=== PATIENT | female | born 1950 | race Caucasian/White ===

== ENCOUNTER 2022-09-05 08:12 | Day surgery (SDC) | payer MEDICARE, OTHER, SELFPAY ==
--- NOTE | 2022-08-27 10:12 | HP.PCM_ITS ---
History and Physical Date of Admission: 09/05/22 HPI: The patient is a 72 year old female presenting for pre-operative visit. She is scheduled for laparoscopic bilateral salpingo-oophorectomy, for right ovarian cyst and family history of ovarian cancer on 09/05/22. Procedure discussed along with risks, benefits and complications. Other alternatives discussed for management. Consent form signed? Yes. ? ? PAST MEDICAL HISTORY PAST MEDICAL HISTORY Diagnosis Date ? Allergic rhinitis, cause unspecified ? ? Allergic rhinitis ? DDD (degenerative disc disease), lumbar ? ? 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 ? GERD (gastroesophageal reflux disease) ? ? Hypertension ? ? Internal hemorrhoids without mention of complication ? ? Lumbar herniated disc ? ? Lumbar spondylosis ? ? steriod injections ? Osteopenia ? ? resolved ? PMH - PAST MEDICAL HISTORY OF ? ? PLANTER FACIITIS ? PMH - PAST MEDICAL HISTORY OF ? ? in utero SANTY exposure ? Sciatica ? ? saw Dr. Marcum in pain mgmt ? Scoliosis ? ? Skin eruption 05/12/2022 ? Spinal stenosis, lumbar region, without neurogenic claudication ? ? Unspecified essential hypertension ? ? Essential hypertension ? Wrist tendonitis ? ? left wrist ? ? PAST SURGICAL HISTORY PAST SURGICAL HISTORY Procedure Laterality Date ? BACK SURGERY HX ? 05/24/2013 ? BACK SURGERY HX ? 06/2020 ? DELIVERY ONLY ? ? ? , low cervical X2 ? COLONOSCOPY FLX DX W/COLLJ SPEC WHEN PFRMD ? 12/29/2011 ? repeat 10 years ? COLONOSCOPY FLX DX W/COLLJ SPEC WHEN PFRMD ? 02/21/2019 ? Colonoscopy ? ESOPHAGOGASTRODUODENOSCOPY TRANSORAL DIAGNOSTIC ? 09/16/2013 ? EGD ? ESOPHAGOGASTRODUODENOSCOPY TRANSORAL DIAGNOSTIC ? 02/21/2019 ? EGD ? FUSION OF FOOT BONES ? 05/24/2014 ? PAST SURGICAL HISTORY OF ? 1996 ? BREAST REDUCTION ? PAST SURGICAL HISTORY OF ? 05/24/2013 ? Micro Disc (Dr. Dawn) ? ? ? CURRENT MEDICATIONS Current Outpatient Medications Medication Sig Dispense Refill ? baclofen (LIORESAL) 10 mg tablet Take 10 mg by mouth as needed. ? ? ? meloxicam (MOBIC) 15 mg tablet Take 1 tablet by mouth once daily as needed. 90 tablet 1 ? furosemide (LASIX) 20 mg tablet Take 1 tablet by mouth once daily. 30 tablet 0 ? potassium chloride (K-TAB) 10 mEq tablet Take 1 tablet by mouth daily with breakfast. 30 tablet 0 ? zolpidem (AMBIEN) 10 mg Take 1 tablet by mouth at bedtime as needed for up to 180 days. 30 tablet 5 ? pregabalin (LYRICA) 25 mg capsule Take 1 capsule by mouth three times daily as needed for up to 180 days. - taking as needed 90 capsule 5 ? alendronate (FOSAMAX) 70 mg tablet Take 1 tablet by mouth one time a week. TAKE IN THE MORNING WITH A FULL GLASS OF WATER ON AN EMPTY STOMACH. DO NOT TAKE ANYTHING ELSE BY MOUTH OR LIE DOWN FOR THE NEXT 30 MINUTES. 12 tablet 4 ? atenolol (TENORMIN) 50 mg tablet Take 1 tablet by mouth once daily. 90 tablet 3 ? lisinopril-hydroCHLOROthiazide (PRINZIDE, ZESTORETIC) 20-25 mg per tablet Take 1 tablet by mouth every morning. 90 tablet 3 ? no122/iron/folic acid ( MULTI ORAL) Take 1 tablet by mouth once daily. ? ? ? estradiol (ESTRACE) 0.01 % (0.1 mg/gram) vaginal cream apply a small amount to the lower vagina qhs 3 times weekly. 42.5 g 1 ? esomeprazole magnesium (NEXIUM ORAL) Take 20 mg by mouth once daily. ? acetaminophen (TYLENOL ARTHRITIS ORAL) Take by mouth as needed. ? montelukast (SINGULAIR) 10 mg tablet Take 1 tablet by mouth once daily. As needed (seasonal allergies; Dr. Hansen prescribes) ? ? ? TRIAMCINOLONE ACETONIDE (NASACORT AQ NASAL) Use in the nose. ? ? ? HYDROcodone-acetaminophen (NORCO) 5-325 mg per tablet Take 1-2 tablets by mouth every 8 hours as needed for pain for up to 5 days. 10 tablet 0 ? Current Facility-Administered Medications Medication Dose Route Frequency Provider Last Rate Last Admin ? perflutren lipid microspheres 1.3 mL in NaCl (PF) 0.9% 10 mL injection (DEFINITY) INTRAVENOUS DIRECTED PRN Anahi Mckenna APRN.DRIVE IN WAITER/WAITRESS ? sodium chloride 0.9 % (flush) 10 mL (BD POSIFLUSH) 10 mL INTRAVENOUS DIRECTED PRN Anahi Mckenna, ROLL FINISHER.DRIVE IN WAITER/WAITRESS ? ? ALLERGIES: Penicillins, Clindamycin, Dilaudid [Hydromorphone Hcl], Grass Pollen, and Sulfa (Sulfonamide Antibiotics) ? PERSONAL HISTORY: SOCIAL HISTORY Social History ? Tobacco Use ? Smoking status: Never ? Smokeless tobacco: Never Vaping Use ? Vaping Use: Never used Substance Use Topics ? Alcohol use: Yes ? ? Comment: 2 GLASSES OF WINE EVERY NIGHT ? Drug use: No ? FAMILY HISTORY: FAMILY HISTORY FAMILY HISTORY Problem Relation Age of Onset ? Hypertension Mother ? ? Arthritis Mother ? ? ? rhematoid ? other (ovarian cancer) Mother ? ? at 86 ? Diabetes Father ? ? Heart Father ? ? Diabetes Sister ? ? Coronary Artery Disease Brother ? ? stents ? Rheumatologic disease Brother ? ? RA ? Diabetes Sister ? ? Coronary Artery Disease Brother ? ? stents ? Breast Cancer Paternal Aunt ? ? other (Polymylasia) Paternal Aunt ? ? ? REVIEW OF SYMPTOMS: GENERAL: denies fevers or chills ENDOCRINOLOGY: has not been on steroids Cardiology : denies palpitations or chest pain Respiratory: denies SOB or cough Hematology: denies history of prolonged bleeding or easy bruising or VTE Allergy: Denies history of personal or family history of allergy to anesthesia ? PHYSICAL EXAMINATION: ? VITALS: Blood pressure 120/76, pulse 62, resp. rate 12, height 4' 11 (1.499 m), weight 165 lb 8 oz (75.1 kg), last menstrual period 06/27/2005. ? GENERAL: The patient is well nourished, well hydrated in no acute distress. , The patient is oriented to time, place, and person. NECK: Supple. No lynphadenopathy, normal thyroid, no thyromegaly. LUNGS: Clear to auscultation bilaterally. no wheezes, rhonchi or rales HEART: Regular rate and rhythm, Normal heart sounds, and No murmurs or gallops ? IMPRESSION: Right ovarian cyst, pelvic pain, family history of ovarian cancer ? PLAN: The risks/benefits/alternatives and personal involved for the planned bilateral salpingo-oophorectomy were reviewed with the patient. Her questions were answered to her satisfaction and she desires to proceed. Consent was signed. I reviewed with her postop instructions and expectations. ? ? I have reviewed and updated past medical and surgical history, medications and allergies Assessment & Plan Assessment/Plan (1) Right ovarian cyst: (2) Family history of ovarian cancer: (3) Pelvic pain:
[2022-09-05] VITALS (7 sets, daily range): BP systolic 122–158; BP diastolic 63–85; PULSE 56–63; RESP 16–18; TEMP 36.3–36.6; O2SAT 94–100; BMI 33.3
--- NOTE | 2022-09-05 | FLU_PTH ---
PATIENT: EDI UNDERWOOD LOC: [facility] U#:[id number] AGE/SX: 72/F ROOM: RE09/05/[address]: Dr. Cathy Yip MD : 1950 BED: DIS: 09/05/2022 SPEC #: [id number] RECD: 09/05/22 11:15 STATUS: BONNY REQ #: [id number] CRISTIANO: 09/05/22 00:[address]: Cathy Yip DEPT: CYTOLOGY RECD BY: Josiah Riggs ENTERED: 09/05/22 11:15 SP TYPE: Fluid OTHR DR: Dr. Liza Castrejon MD Tissues: Peritoneal fluid Procedures: Special Stain Group II Surgery Specimen Level IV Cytospin Fluid HEADER OPERATION: Laparoscopic salpingo-oophorectomy PRE-OP DIAGNOSIS: Right ovarian cyst, pelvic pain, family history of ovarian cancer TISSUE SUBMITTED: Peritoneal fluid for cytology DIAGNOSIS CYTOLOGY Peritoneal fluid for cytology (cytospin and cell block): Negative for malignant cells. AM:david 09/08/2022 CYTOLOGY STUDY Slides are reviewed. CYTOLOGY GROSS Received is 40 ml of yellow cloudy fluid labeled with the patient's name and and designated per the requisition as peritoneal. Submitted for cytology preparation including cell block. / david 09/05/2022 TC:5 CPT: 16372, 64578
[2022-09-05] MEDS: Acetaminophen 500 MG Tablet 1000 MG PO (09:10)
[2022-09-05] MEDS: Celecoxib 200 MG Capsule PO (09:10)
[2022-09-05 09:11] LABS: Hematocrit 35.3 % (37-47); Hemoglobin 11.4 g/dL (12.0-15.0); Mean Corp Hgb Conc 32.3 g/dL (32-36); Mean Corpuscular Hgb 33.5 pg (27.0-32.0); Mean Corpuscular Volume 103.8 fL (81-99); Mean Platelet Vol. 9.2 fl (6.2-12.0); Platelet Count 270 K/mm3 (150-450); RBC Distribution Width CV 14.8 % (11.6-14.6); RBC Distribution Width SD 57.1 fl (35.1-43.9); White Blood Count 5.3 K/mm3 (4.4-11.0)
[2022-09-05] MEDS: Lactated Ringers 1,000 ML 15 ML IV (09:12)
[2022-09-05 09:30] LABS: AST(SGOT) 18 U/L (15-37); Alanine Aminotransfer ALT/SGPT 34 U/L (13-56); Albumin, Serum 3.3 g/dL (3.2-5.0); Alkaline Phosphatase 54 U/L (45-117); Bilirubin, Direct 0.09 mg/dL (0.00-0.30); Globulin 2.6 g/dL (2.2-4.2); Protein, Total 5.9 g/dL (6.4-8.2)
--- NOTE | 2022-09-05 09:40 | OV_PTH ---
PATIENT: EDI UNDERWOOD LOC: [facility] [place] U#:[id number] AGE/SX: 72/F ROOM: RE09/05/[address]: Dr. Cathy Yip MD : 1950 BED: DIS: 09/05/2022 SPEC #: [id number] RECD: 09/05/22 12:55 STATUS: BONNY REMarvel #: [id number] CRISTIANO: 09/05/22 09:[address]: Cathy Yip DEPT: SURGICAL PATHOLOGY RECD BY: Tabatha Lezama ENTERED: 09/05/22 13:17 SP TYPE: OVARY OTHR DR: Dr. Liza Castrejon MD Tissues: A - OVARIAN CYST B - Peritoneal cavity, NOS Procedures: Surgery Specimen Level IV HEADER OPERATION: Laparoscopic salpingo-oophorectomy PRE-OP DIAGNOSIS: Right ovarian cyst, pelvic pain, family history of ovarian cancer TISSUE SUBMITTED: A - Bilateral fallopian tubes and ovaries, stitch on left, B ? Peritoneal nodule MICROSCOPIC DIAGNOSIS A. Bilateral fallopian tubes and ovaries: Bilateral ovaries - no pathologic diagnosis. Bilateral fallopian tubes - hydrosalpinx. B. Peritoneal nodule, biopsy: Consistent with leiomyoma. SJ:david 09/08/2022 COMMENT Case has been reviewed in consultation with Dr. Ayala who concurs with the above diagnosis. IDC:AM MICROSCOPIC DESCRIPTION Slides are reviewed. GROSS DESCRIPTION A - Received in fixative is one container labeled with the patient's name and designated bilateral fallopian tubes and ovaries. The specimen consists of a smooth, crinkled, yellow-abarca right ovary measuring 2.8 x 1.5 x 1 cm. Serial sections do not reveal mass lesions. Adjacent to this is a fallopian tube measuring 8 cm in length and varies in diameter from 0.8 to 2.5 cm. Two Filshie-type clips are present and intact. The left ovary is similar in appearance and measures 3 x 1.5 x 1 cm. Serial sections do not reveal mass lesions. The left fallopian tube is similar in appearance to the right tube and measures 9 cm in length and varies in diameter from 0.6 to 4.5 cm. The dilated portion of both fallopian tubes contains clear fluid. Two Filshie-type clips are present and intact. Certified Nurses' Aide sections are submitted in four cassettes as follows: 1 ? right ovary and fallopian tube, 2 ? dilated portion of right fallopian tube, 3 ? left ovary and fallopian tube, 4 ? dilated portion of left fallopian tube. B - Received in fixative is one container labeled with the patient's name and designated peritoneal nodule. The specimen consists of firm, pink-yellow nodular tissue measuring 0.6 x 0.5 x 0.2 cm. The specimen is totally submitted in one cassette. / AM:david 09/05/2022 TC:1 CPT: 07798 x3
--- NOTE | 2022-09-05 09:52 | DCINST_ITS ---
Discharge Instructions Diet Discharge Diet: No restrictions Activity May resume sexual activity in: 1 week and 2 weeks Lifting Restrictions: none Dressing / Incision Call your doctor if your incision/area has: Sudden Increased Bleeding and Foul Smelling Discharge Call your doctor if you observe: Fever of 101 or Higher and Using more than 1 pad per hour (for 2 hrs in a row) Follow Up Care Please Follow Up With: Cathy Yip MD When: 2-4 weeks or as needed. Call [phone] to make an appointment or with any concerns. Test Results: Test results from this visit will be discussed in further detail at your follow- up appointment, if applicable. Discharge Plan Admission Admit Date/Time: 09/05/22 08:12 Primary Reason for Your Visit: Bilateral tube and ovary removal Attending Provider: Cathy Yip Primary Care Provider: Liza Castrejon Discharge Orders/Prescriptions Prescriptions: No Action meloxicam [Mobic] 15 mg Tablet 15 mg PO DAILY alendronate [Fosamax] 70 mg Tablet 70 mg PO SA potassium chloride 10 mEq Tablet Extended Release 10 meq PO DAILY lisinopril-hydrochlorothiazide 20-25 mg Tablet 1 tab PO DAILY furosemide 20 mg Tablet 20 mg PO DAILY zolpidem 10 mg Tablet 10 mg PO QHS 60-0.8 mg Tablet 1 tab PO QHS acetaminophen [Tylenol Extra Strength] 500 mg Capsule 1,000 mg PO BID atenolol 50 mg Tablet 50 mg PO DAILY pregabalin 25 mg Capsule 50 mg PO BID PRN (Reason: Pain) esomeprazole magnesium [Nexium] 20 mg Capsule,Delayed Release(Dr/Ec) 20 mg PO DAILY Referrals / Follow Up: Liza Castrejon MD [Primary Care Provider] - Disposition Disposition (needs filled in before D/C Order can be placed): Home, Self Care
[2022-09-05] MEDS: Bupivacaine 0.25% 30 ML Vial (10:20)
--- NOTE | 2022-09-05 10:32 | OP.PCM_ITS ---
Problems Associated Problem List Diagnoses (1) Right ovarian cyst: (2) Family history of ovarian cancer: (3) Pelvic pain: Report of Operation Date of Procedure: 09/05/22 Pre-Operative Diagnosis: bilateral ovarian cyst, pelvic pain, family h/o ovarian ca Post-Operative Diagnosis: same Surgery/Procedure Performed:: Laparoscopic BSO w/ pelvic washings and peritoneal biopsy Description of Surgical Findings:: small atrophic right ovary, normal tube, small paratubal cyst, left small but ovarian cyst w/ straw colored fluid and some firm nodularity externally and internally. bilateral filshie clips, 2 each tube, nodular are left side of the bladder peritoneum Surgeon: Cathy Yip cnc lathe machinist: Marya Davis cnc lathe machinist: Sandrine gonzalez Type of Anesthesia: General Anesthesiologist: Garret Retana Special Medications: none Specimen's removed: bilateral fallopian tubes and ovaries Drains: none Estimated Blood Loss (mL): 5 Fluids Replaced: 1000 Description of Procedure: The patient was taken to the operating room where she was prepped and draped in the dorsolithotomy position. A weighted speculum was placed in the vagina and the anterior lip of the cervix was grasped with a tenaculum. The acorn uterine manipulator was placed and the remainder of the instruments were removed from the vagina. Attention was turned to the abdomen. All port sites were infiltrated with 0.5% Marcaine before skin incisions were made. A 5 mm intraumbilical incision was made. The anterior abdominal wall was tented up with 2 towel clamps while a 5 mm blade less trocar and sleeve were directly inserted. Intraperitoneal placement was confirmed with the laparoscope. The pneumoperitoneum was created and the underlying abdominal contents were intact. The patient was placed in Trendelenburg. 5mm right and left lower quadrant ports were placed under direct visualization lateral to the inferior epigastric vessels. The bowel was swept away and the above findings were noted. Pelvic washings were obtained. The ureters were identified before we started. The right infundibulopelvic ligament was clamped, sealed and transected with the LigaSure device. The antimesenteric portions of the tube were clamped, sealed and transected. The utero-ovarian ligaments were clamped sealed and transected with the LigaSure device . The same procedure was performed on the contralateral side. The specimens were placed in an bag and removed through the umbilical incision. The umbilical incision was extended to allow removal of the ovaries in the bag intact. The pedicles were again examined and found to be hemostatic. The umbilical port fascia was closed with 4-0 Vicryl suture in a running sta ndard fashion. The lateral ports were removed under direct visualization and no active bleeding was noted. The pneumoperitoneum was released. The skin incisions were closed with Monocryl suture in a subcuticular fashion and skin glue by Dr. Gill. Dr. Gill provided camera guidance and tissue manipulation during the procedure. The vaginal instruments were removed and the vaginal sweep was completed by me. The procedure was performed by me with assistance other than as dictated above. All sponge and needle counts were correct and the patient was taken to the recovery room in stable condition. Grafts/Implants Used: none Procedure Start Time: 09:50 Procedure Stop Time: 10:37 Complications none Admit VTE Documentation VTE Present on Admission: No VTE Mechan Device Prophylaxis: SCD's VTE Pharm Prophylaxis ordered?: No Reason prophylaxis not ordered:: Procedure Not Indicated
[2022-09-05] MEDS: Sugammadex Sodium 200 MG/2 ML VIAL IV (10:38)
[2022-09-10 05:51] LABS: Cytology, Body Fluid / CSF SEE PATHOLOGY REPORT
== END 2022-09-05 12:58 | disposition home or self-care (01) | DRG 743 ==
LOC: ACINP 09:53 → SDC 09-17 10:27
PROVIDERS: Anesthesiology; PCP Internal Medicine; Referring Provider Obstetrics & Gynecology; Visit Provider Obstetrics & Gynecology
PROC: (CPT 58661; principal; 2022-09-05 09:30)
DX: N83.201 Unspecified ovarian cyst, right side (principal); N83.202 Unspecified ovarian cyst, left side; I10 Essential (primary) hypertension; Z80.41 Family history of malignant neoplasm of ovary; R10.2 Pelvic and perineal pain
CPT/HCPCS: 58661; 49321; 00840; 80076; 85027; 88108; 88302; 88305; 88313; J7120; J2405

== ENCOUNTER 2023-06-02 10:30 | Outpatient (RCR) | payer MEDICARE, OTHER, SELFPAY ==
--- NOTE | 2023-04-01 18:35 | HP.PTEVAL_ITS ---
Patient's Visit Information Visit Information Visit Information: EDI UNDERWOOD is a 72 year old F referred to Physical Therapy by LEANNA Morales with a diagnosis of lumbar spondylosis, scoliosis of lumbar spine, and L foot drop. Date of Evaluation: 04/01/23 Physical Therapist: Harrison Ge DPT Visit Plan Frequency: 2x /Week Duration: 6 Weeks Plan: Start with B ankle strengthening including PF/DF, add in neutral spine core stability. Add in static and dynamic balance including wt. shifting in order to increase ability to self correct and use ankle strategies to maintain stability. Subjective Subjective: Pt. is here today for her initial evaluation with diagnosis of lumbar spondylosis, scoliosis of lumbar spine, and L foot drop. She is having issues with her balance, resulting in 2 falls this year. She also has a history of lumbar spine pain with L radiculopathy. Pt. did have surgery and had subsequent foot drop on the L side. Pt. does have some neuropathy in B feet, but no numbness, just tingling. She is being fitted for a brace, AFO, but not until April 15. Pt. is hopeful to improve her BLE strength, increase her balance and reduce her leg and back pain. Pain Lumbar spine: Pain Intensity (Out of 10): 3 Pain Intensity Range: 1 and 6 Objective Objective: POSTURE: pt. has general flexed posture, pt. is able to correct, but has increased pain with increased upright posture. PALPATION: Pt. has tenderness at L side of lumbar spine. No distal LEs pain. NEURO: normal sensation to light and sharp touch. Normal DTR of BLEs. Pt. has increased difficulty rising on heels and toes. ROM: L ankle: normal except tight into DF 8deg. Normal hip ROM. LUMBAR SPINE: flexion nil loss NE, ext mod loss increase NW, SB min loss bilat NE, rotation min loss bilat NE. Pt. has tight B HS and hip flexors. MMT: RLE 5/5 throughout. LLE: ankle: DF 3/5, PF 4+/5; knee: ext 5-/5, flexion 5- /5. hiP; flexion 5-/5, abd 5-/5. Core strength- poor. GAIT: pt. ambulates without AD. Pt. has increased B ankle pronation during stance L worse than R. Pt. has marked L foot drop resulting in slapping during ankle DF eccentrics. STAIRS{: Pt. completed with out issues. Special Tests L/S Slump test left side: Negative L/S Slump test right side: Negative L/S Left Straight Leg Raise: Negative L/S Right Straight Leg Raise: Negative Lumbar Standing: Flexion - Mechanical Response: No effect Lumbar Standing: Flexion - Symptoms During Testing: No effect Lumbar Standing: Flexion - Symptoms After Testing: No effect Lumbar Standing: Extension - Mechanical Response: No effect Lumbar Standing: Extension - Symptoms During Testing: Increases Lumbar Standing: Extension - Symptoms After Testing: No worse Lumbar Standing: Right Side Glides - Mechanical Response: No effect Lumbar Standing: Right Side [facility] - Symptoms During Testing: No effect Lumbar Standing: Right Side [facility] - Symptoms After Testing: No better Lumbar Standing: Left Side [facility] - Mechanical Response: No effect Lumbar Standing: Left Side [facility] - Symptoms During Testing: No effect Lumbar Standing: Left Side [facility] - Symptoms After Testing: No better Lumbar Lying: Flexion - Mechanical Response: No effect Lumbar Lying: Flexion - Symptoms During Testing: Decreases Lumbar Lying: Flexion - Symptoms After Testing: Better L Hip Scour: Negative L Hip DOLORES - Intraarticular Pathology: Negative L Hip FADDIR - Labrum: Negative Balance/Special Test Scores Functional Gait Assessment Score: 21 % Disability: 30.0000 CATSIB Score (Max score 120 seconds): 76 Oswestry Low Back Score: 21 Goals Goal 1:: LTG: pt. to be I with HEP. Goal Time Frame: 4-6 Weeks Goal 2:: STG: pt. to have decreased low back and L leg pain to 0-2/10 pain with walking throughout home. Goal Time Frame: 2 Weeks Goal 3:: LTG: Pt. to be able to walk throughout grocery stores with 0-2/10 pain in L LE and back. Goal Time Frame: 4-6 Weeks Goal 4:: LTG: Pt. to have increased core strength to fair in order to reduce stress to lumbar spine with all functional activities. Goal Time Frame: 4-6 Weeks Goal 5:: LTG: Pt. to have increased L DF strength to 4/5 allowing for better foot clearance with gait. Goal Time Frame: 4-6 Weeks Goal 6:: LTG: pt to have increased FGA score to greater than 24/30 indicating reduce risk for future falls. Goal Time Frame: 4-6 Weeks Rehabilitation Potential Physical Therapy Diagnosis: Pt. has signs and symptoms consistent with lumbar spondylosis, scoliosis of lumbar spine, and L foot drop. Pt. has some strength in her L DF, but fatigues rapidly. Pt. has some imbalance in stance and with dynamic movements. She also has a history of back surgery and radiculopathy. She would benefit from PT to address the above limitations progressing her L ankle strength, core stability and dynamic balance. Rehabilitation Potential: Good Anticipated Interventions Patient/Client Instruction: Educate patient on: Condition, Plan of Care, Risk Factors and Benefits of Fitness Program For the Purpose of:: To facilitate caregiver knowledge, To improve self management, To prevent re-injury and To improve ability to perform tasks related to life management Therapeutic Exercise to Include: Strength training, Power training, Endurance training, Balance training, Flexibilty training, Gait and locomotor training, Passive ROM, Active ROM and Dynamic Lumbar Stabilization For the Purpose of:: To decrease pain, To increase ROM, To improve nutrient delivery to tissue, To increase oxygenation perfusion, To improve muscle performance and motor function, To improve ability to perform ADL's, To increase tolerance to activity/condition/position, To improve performance and independence with ADL's and To decrease level of supervision to perform tasks Text: Thank you for the opportunity to evaluate your patient. For Medicare and Medicare HMO plans, please review the plan of care and approve it. It will need to be FAXED BACK to us at [phone] for Medicare purposes. For Medicare only, by signing this I certify the plan of care. Please let me know if there are questions or concerns regarding this plan of care. Physician Signature: D ate:
--- NOTE | 2023-04-29 11:47 | HP.PTREVAL ---
Re-Evaluation Intro: Michaelle Menezes, LUL-C, It has been my pleasure to treat EDI UNDERWOOD over the last 10 visits for lumbar spondylosis, scoliosis of lumbar spine, and L foot drop. Please see the progress note below for an update on the physical therapy plan of care! Subjective Subjective: No falls since the last visit. Takes meds for her back pain and also meds for her Neuropathy. Objective Objective/Function: spent half of session w/ balance and half in the gym . Balance ex went well today. pt is doing well w/ the gym machines. No LOB w/ gt today in the clinic but LE fatigue quickly and needs to have rest breaks. Plan Plan Plan: Extending PT x2 per week for 4 weeks. Work on progressive gym exercises for LE and core strengthening. Cont. to work on balance as well. 50%/ea. during each visit. Plan is to eventually progress to I gym program and balance activities as well. Balance/Gait/Functional tests Balance/Special Test Scores Functional Gait Assessment Score: 16 % Disability: 46.6700 CATSIB Score (Max score 120 seconds): 76 Oswestry Low Back Score: 21 TUG Test Time Seconds: 10.95 Tug Test: <20 sec.=mostly independent Goals Goals Goal 1:: LTG: pt. to be I with HEP. Goal Time Frame: 4-6 Weeks Goal 2:: STG: pt. to have decreased low back and L leg pain to 0-2/10 pain with walking throughout home. Goal Time Frame: 2 Weeks Goal 3:: LTG: Pt. to be able to walk throughout grocery stores with 0-2/10 pain in L LE and back. Goal Time Frame: 4-6 Weeks Goal 4:: LTG: Pt. to have increased core strength to fair in order to reduce stress to lumbar spine with all functional activities. Goal Time Frame: 4-6 Weeks Goal 5:: LTG: Pt. to have increased L DF strength to 4/5 allowing for better foot clearance with gait. Goal Time Frame: 4-6 Weeks Goal 6:: LTG: pt to have increased FGA score to greater than 24/30 indicating reduce risk for future falls. Goal Time Frame: 4-6 Weeks Anticipated Interventions Anticipated Interventions Patient/Client Instruction: Educate patient on: Condition, Plan of Care, Risk Factors and Benefits of Fitness Program For the Purpose of:: To facilitate caregiver knowledge, To improve self management, To prevent re-injury and To improve ability to perform tasks related to life management Therapeutic Exercise to Include: Strength training, Power training, Endurance training, Balance training, Flexibilty training, Gait and locomotor training, Passive ROM, Active ROM and Dynamic Lumbar Stabilization For the Purpose of:: To decrease pain, To increase ROM, To improve nutrient delivery to tissue, To increase oxygenation perfusion, To improve muscle performance and motor function, To improve ability to perform ADL's, To increase tolerance to activity/condition/position, To improve performance and independence with ADL's and To decrease level of supervision to perform tasks Re-Evaluation Ending Re-evaluation ending: Please do not hesitate to contact me at [phone] by phone or if you have questions or concerns regarding this new plan of care! Sincerely, MARTIN LocoT
--- NOTE | 2023-06-02 15:22 | HP.PTDCSUM_ITS ---
Discharge Summary D/C summary: It has been my pleasure to treat EDI UNDERWOOD referred by LEANNA Morales, with the diagnosis of lumbar spondylosis, scoliosis of lumbar spine, and L foot drop for a total of 16 visit(s). Discharge Date: 06/02/23 Please see the following information for a summary of their discharge status. Subjective Subjective: Pt. reports going on vacation and doing well. No major issues noted. Pain Lumbar spine: Pain Intensity (Out of 10): 1 Overall Improvement % Improvement: 80 Objective Objective/Function: Pt. is overall doing well. I will DC her to HEP this date. Pt. reports being much better with her balance and strength. She is planning to start a gym program with local personal loan specialist. She does have some weakness in her L LE, but has improved a bit. At this point in time she will be DC from PT to HEP and gym program. Goals Goal 1:: LTG: pt. to be I with HEP. Goal Progress: Goal Met Goal 2:: STG: pt. to have decreased low back and L leg pain to 0-2/10 pain with walking throughout home. Goal Progress: Goal Met Goal 3:: LTG: Pt. to be able to walk throughout grocery stores with 0-2/10 pain in L LE and back. Goal Progress: Goal Met Goal 4:: LTG: Pt. to have increased core strength to fair in order to reduce stress to lumbar spine with all functional activities. Goal Progress: Goal Met Goal 5:: LTG: Pt. to have increased L DF strength to 4/5 allowing for better foot clearance with gait. Goal Progress: Goal Met Goal 6:: LTG: pt to have increased FGA score to greater than 24/30 indicating reduce risk for future falls. Goal Progress: Progressing Plan Plan: DC from PT to gym program at this point in time. D/C Information Discharge Comments: pt. was treated with focus on core strengthening and LE strengthening for her low back pain and LE weakness. Pt. has progressed well, to the point where she is ready to focus on gym exercises. Pt. will be DC from PT this date. d/c sentence: If there are questions or concerns regarding this patient's physical therapy, please feel free to call me at [phone]. Thank you for the referral of this patient. Sincerely, Harrison L Sipos, DPT Balance/Gait/Functional tests Balance/Special Test Scores Functional Gait Assessment Score: 16 % Disability: 46.6700 CATSIB Score (Max score 120 seconds): 76 Oswestry Low Back Score: 11 TUG Test Time Seconds: 10.95 Tug Test: <20 sec.=mostly independent Improvement % Improvement: 80
== END 2023-06-02 19:00 | disposition home or self-care (01) ==
LOC: PT 10:30
PROVIDERS: PCP Internal Medicine; Visit Provider Clinical Nurse Specialist
DX: M47.816 Spondylosis without myelopathy or radiculopathy, lumbar region (principal); R26.89 Other abnormalities of gait and mobility; M41.9 Scoliosis, unspecified; M21.372 Foot drop, left foot
CPT/HCPCS: 97110; 97161; 97164

== ENCOUNTER → 2024-06-29 | Outpatient (CLI) | payer MEDICARE, OTHER, SELFPAY ==
--- NOTE | 2024-06-29 09:36 | ECHOD_ITS ---
Reason For Study: HYPERTENSION Procedure This was a 2D Doppler, Color Flow transthoracic echocardiogram. Exam performed in department. Left Ventricle Normal LV size. Left ventricular systolic function is normal. The left ventricular ejection fraction is 65 %. Stage 1 diastolic dysfunction. No regional wall motion abnormalities noted. Right Ventricle Normal RV size. Normal systolic function. Atria Normal left atrium. Normal right atrium. Mitral Valve Normal mitral valve. Tricuspid Valve Normal tricuspid valve. Aortic Valve Trisinus/trileaflet aortic valve. Pulmonic Valve Normal pulmonic valve. Great Vessels Normal aortic root. The pulmonary artery is normal size. Normal inferior vena cava. Pericardium/Pleural No pericardial effusion. MMode/2D Measurements & Calculations LVIDd: 3.5 cm IVSd: 1.0 cm LVOT diam: 1.9 cm LVIDs: 2.1 cm LVPWd: 1.0 cm LVOT area: 2.8 cm2 RVDd: 3.6 cm FS: 40.4 % asc Aorta Diam: 3.7 cm LAV(MOD-bp): 30.6 ml LVAd ap4: 19.5 cm2 LAV(MOD-bp) Indexed: 20.0 ml/m2 LVLd ap4: 6.1 cm LAV(MOD-sp2): 28.3 ml EDV(MOD-sp4): 49.7 ml LAV(MOD-sp4): 31.5 ml EDV(sp4-el): 53.5 ml LVAs ap4: 10.1 cm2 LVLs ap4: 5.2 cm ESV(MOD-sp4): 16.8 ml ESV(sp4-el): 16.9 ml EF(MOD-sp4): 66.3 % EF(sp4-el): 68.3 % LVAd ap2: 16.3 cm2 SV(MOD-sp4): 33.0 ml SV(MOD-sp2): 24.7 ml LVLd ap2: 5.9 cm EDV(MOD-sp2): 36.4 ml EDV(sp2-el): 38.3 ml LVAs ap2: 8.5 cm2 LVLs ap2: 5.3 cm ESV(MOD-sp2): 11.7 ml ESV(sp2-el): 11.8 ml EF(MOD-sp2): 67.9 % SV(sp4-el): 36.6 ml Ao sinus diam: 2.[address] Junction: 2.6 cm LA dimension(2D): 3.0 cm LA A4 area: 13.3 cm2 RA A4 area: 7.5 cm2 TAPSE: 1.7 cm Time Measurements MV dec time: 0.15 sec Doppler Measurements & Calculations MV E max ismael: 76.2 cm/sec Lat Peak E' Ismael: 7.4 cm/sec Med Peak E' Ismael: 6.0 cm/sec MV A max ismael: 102.1 cm/sec E/E' lat: 10.2 E/E' med: 12.6 MV E/A: 0.75 MV dec slope: 501.7 cm/sec2 Ao V2 max: 126.0 cm/sec LV V1 max: 106.6 cm/sec Ao max P.4 mmHg LV V1 max P.5 mmHg Ao V2 mean: 86.8 cm/sec LV V1 mean P.5 mmHg Ao mean P.5 mmHg LV V1 mean: 73.9 cm/sec Ao V2 VTI: 27.0 cm LV V1 VTI: 24.3 cm AV (velocity ratio): 0.90 FANG(I,D): 2.5 cm2 FANG(V,D): 2.3 cm2 SV(LVOT): 66.7 ml PA V2 max: 87.7 cm/sec PA max PG (full): 1.1 mmHg ECHO/Echo Complete Interpretation Summary Normal LV size. Left ventricular systolic function is normal. The left ventricular ejection fraction is 65 %. Stage 1 diastolic dysfunction. Structurally normal valves. Ordering Physician: Finesse Judd Referring Physician: Liza Castrejon M.D. Performed By: Ariana Armenta RDCS
== END | disposition home or self-care (01) ==
LOC: CVS 09:34
PROVIDERS: PCP Internal Medicine; Referring Provider Internal Medicine Cardiovascular Disease; Visit Provider Internal Medicine Cardiovascular Disease
DX: R06.02 Shortness of breath (principal); I10 Essential (primary) hypertension
CPT/HCPCS: 93306

== ENCOUNTER → 2024-07-13 | Outpatient (CLI) | payer MEDICARE, OTHER, SELFPAY ==
[2024-07-13 11:27] LABS: Anion Gap 6 (5-15); BUN 18 mg/dL (7-18); BUN/Creat Ratio 24.1 RATIO (10-20); Calcium,Total 9.5 mg/dL (8.5-10.1); Chloride 95 mmol/L (98-107); Creatinine, Serum 0.75 mg/dL (0.55-1.02); EST Glomerular Filtration Rate 81 mL/min (>60); Est Glom Filt Rate - Afr Amer 98 mL/min (>60); Glucose 103 mg/dL (74-106); Sodium Level 130 mmol/L (136-145)
== END | disposition home or self-care (01) ==
LOC: LAB 10:33
PROVIDERS: PCP Internal Medicine; Referring Provider Internal Medicine Cardiovascular Disease; Visit Provider Internal Medicine Cardiovascular Disease
DX: I10 Essential (primary) hypertension (principal); E87.1 Hypo-osmolality and hyponatremia
CPT/HCPCS: 36415; 80048

== ENCOUNTER → 2024-09-16 | Outpatient (CLI) | payer MEDICARE, OTHER, SELFPAY ==
[2024-09-16 11:34] LABS: ALB/GLOB Ratio 1.2 RATIO (0.9-2.4); AST(SGOT) 18 U/L (15-37); Alanine Aminotransfer ALT/SGPT 22 U/L (13-56); Albumin, Serum 3.4 g/dL (3.2-5.0); Alkaline Phosphatase 60 U/L (45-117); Anion Gap 5 (5-15); BUN 14 mg/dL (7-18); BUN/Creat Ratio 18.2 RATIO (10-20); Calcium,Total 8.9 mg/dL (8.5-10.1); Chloride 100 mmol/L (98-107); Creatinine, Serum 0.77 mg/dL (0.55-1.02); EST Glomerular Filtration Rate 78 mL/min (>60); Est Glom Filt Rate - Afr Amer 95 mL/min (>60); Globulin 2.8 g/dL (2.2-4.2); Glucose 94 mg/dL (74-106); Protein, Total 6.2 g/dL (6.4-8.2); Sodium Level 134 mmol/L (136-145)
== END | disposition home or self-care (01) ==
PROVIDERS: PCP Internal Medicine; Referring Provider Internal Medicine Cardiovascular Disease; Visit Provider Internal Medicine Cardiovascular Disease
DX: I10 Essential (primary) hypertension (principal); E87.1 Hypo-osmolality and hyponatremia
CPT/HCPCS: 36415; 80053

== ENCOUNTER → 2024-10-11 | Outpatient (CLI) | payer MEDICARE, OTHER, SELFPAY ==
[2024-10-11 11:31] LABS: Anion Gap 6 (5-15); BUN 30 mg/dL (7-18); BUN/Creat Ratio 36.2 RATIO (10-20); Calcium,Total 9.3 mg/dL (8.5-10.1); Chloride 94 mmol/L (98-107); Creatinine, Serum 0.83 mg/dL (0.55-1.02); EST Glomerular Filtration Rate 72 mL/min (>60); Est Glom Filt Rate - Afr Amer 87 mL/min (>60); Glucose 100 mg/dL (74-106); Potassium 3.4 mmol/L (3.5-5.1); Sodium Level 131 mmol/L (136-145)
== END | disposition home or self-care (01) ==
LOC: LAB 10:20
PROVIDERS: PCP Internal Medicine; Referring Provider Internal Medicine Cardiovascular Disease; Visit Provider Internal Medicine Cardiovascular Disease
DX: E87.1 Hypo-osmolality and hyponatremia (principal); Z51.81 Encounter for therapeutic drug level monitoring; Z79.899 Other long term (current) drug therapy; Z87.898 Personal history of other specified conditions
CPT/HCPCS: 36415; 80048

== ENCOUNTER 2024-11-08 09:15 | Outpatient (CLI) | payer MEDICARE, OTHER, SELFPAY ==
[2024-11-08 12:37] LABS: Anion Gap 10 (5-15); BUN 24 mg/dL (7-18); Calcium,Total 9.3 mg/dL (8.5-10.1); Chloride 100 mmol/L (98-107); Creatinine, Serum 0.75 mg/dL (0.55-1.02); EST Glomerular Filtration Rate 81 mL/min (>60); Est Glom Filt Rate - Afr Amer 98 mL/min (>60); Glucose 108 mg/dL (74-106); Potassium 3.9 mmol/L (3.5-5.1); Sodium Level 135 mmol/L (136-145)
== END 2024-11-08 23:59 | disposition home or self-care (01) ==
LOC: LAB 09:16
PROVIDERS: PCP Internal Medicine; Referring Provider Internal Medicine Cardiovascular Disease; Visit Provider Internal Medicine Cardiovascular Disease
DX: Z51.81 Encounter for therapeutic drug level monitoring (principal); E87.1 Hypo-osmolality and hyponatremia; R60.0 Localized edema
CPT/HCPCS: 36415; 80048

== ENCOUNTER → 2025-06-01 | Outpatient (CLI) | payer MEDICARE, OTHER, SELFPAY ==
[2025-06-01 10:52] LABS: Anion Gap 10 (5-15); BUN 13 mg/dL (4-19); BUN/Creat Ratio 19.2 RATIO (10-20); Calcium,Total 9.5 mg/dL (7.6-11.0); Carbon Dioxide 25.7 mmol/L (21.0-32.0); Chloride 101 mmol/L (98-108); Glucose 101 mg/dL (70-99); Potassium 4.1 mmol/L (3.3-5.1)
== END | disposition home or self-care (01) ==
LOC: LAB 08:24
PROVIDERS: PCP Internal Medicine; Referring Provider Internal Medicine Cardiovascular Disease; Visit Provider Internal Medicine Cardiovascular Disease
DX: Z51.81 Encounter for therapeutic drug level monitoring (principal); E87.1 Hypo-osmolality and hyponatremia; Z79.899 Other long term (current) drug therapy; Z87.898 Personal history of other specified conditions
CPT/HCPCS: 36415; 80048